=== PATIENT | female | born 2000 | race Two or more races ===

== ENCOUNTER 2019-06-05 22:36 | Emergency (ER) | payer SELFPAY ==
[~2019-06-05] VITALS: Ht 165.1 cm; Wt 60.0 kg
[2019-06-05 22:59] VITALS: BP 110/76
== END 2019-06-06 03:04 | disposition left against medical advice (07) ==
LOC: ER 22:36
DX: R41.82 Altered mental status, unspecified (principal); Z53.21 Procedure and treatment not carried out due to patient leaving prior to being seen by health care provider